=== PATIENT | male | born 1955 | race Caucasian/White ===

== ENCOUNTER 2018-12-01 10:59 | Inpatient (IN) ==
--- NOTE | 2018-12-01 13:12 | Diag Imaging Result Doc PS360 ---
EXAM: CT HEAD W/O CONTRAST INDICATION: syncope / LOC TECHNIQUE: This exam was performed using automated exposure control, adjustment of mA or kV according to patient size, and/or use of iterative reconstruction technique. COMPARISON: None. FINDINGS: There is excessive motion artifact involving several slices at the level of the basal ganglia, which somewhat limits the diagnostic quality of this study. However, there is no definite acute infarct given the limited sensitivity of CT versus MRI. There is no discrete intracranial mass, mass effect, or intracranial hemorrhage. The surrounding soft tissues and bony structures are essentially unremarkable. IMPRESSION: Somewhat limited due to excessive motion artifact. No definite acute pathology as imaged. Electronically signed by Valentino Hernandez 12/01/2018 1:09 PM
[2018-12-01 13:49] LABS: URINE SOURCE CATH
[2018-12-01 13:56] LABS: BASO# 0.02 X1000 (0.0-0.2); BASO% 0.1 % (0.0-0.8); EOS# 0.03 X1000 (0.0-0.7); EOS% 0.2 % (0.0-10.0); HEMOGLOBIN 14.9 g/dL (14.0-18.0); IMM GRAN# 0.03 X1000 (0.0-0.04); IMM GRAN% 0.2 % (0.0-0.5); LYMPH# 1.13 X1000 (1.2-3.4); LYMPH% 6.8 % (20.5-51.1); MCH 30.8 PG (27-31); MCHC 33.1 g/dL (33-37); MCV 93.2 FL (81-99); MONO# 0.82 X1000 (0.11-0.59); MPV 9.2 FL (7.4-10.4); NEUT% 87.7 % (42.2-75.2); PLT 369 X1000 (130-400); RBC 4.83 XMIL (4.7-6.1); RDW 12.4 % (11.5-14.5); WBC 16.53 X1000 (4.8-10.8)
[2018-12-01 14:00] LABS: BILIRUBIN URINE NEGATIVE (NEGATIVE); BLOOD URINE NEGATIVE (NEGATIVE); COLOR YELLOW; GLUCOSE URINE NEGATIVE (NEGATIVE); KETONE URINE NEGATIVE (NEGATIVE); LEUKOCYTES URINE NEGATIVE (NEGATIVE); NITRITE URINE NEGATIVE (NEGATIVE); PH URINE 6.5; PROTEIN URINE 50 mg/dL (NEGATIVE); SP GRAVITY URINE 1.013; TURBIDITY URINE HAZY (CLEAR); UR EPITHELIAL CELLS >10 /HPF (<10); URINE BACTERIA NEGATIVE /HPF; URINE RBC <10 /HPF (<10); URINE WBC <10 /HPF (<10); UROBILINOGEN URINE NORMAL (NORMAL)
[2018-12-01 14:11] LABS: AGAP 14; ALB/GLOB RATIO 1.5; ALBUMIN 4.3 g/dL (3.5-5.0); ALKALINE PHOSPHATASE 97 U/L (32-122); BUN 8 mg/dL (8-22); CALCIUM 9.4 mg/dL (8.8-10.2); CHLORIDE 103 mmol/L (98-107); COSMO 278; CREATININE 0.6 mg/dL (0.7-1.2); ESTIMATED GFR > 60; GLUCOSE 106 mg/dL (70-104); GOT 18 U/L (10-34); GPT 12 U/L (10-44); POTASSIUM 4.3 mmol/L (3.5-5.1); SODIUM 140 mmol/L (136-145); TCO2 23 mmol/L (25-35); TOTAL BILIRUBIN 0.42 mg/dL (0.20-1.00); TOTAL PROTEIN 7.2 g/dL (6.3-8.3)
[2018-12-01] MEDS ORDERED: ROCEPHIN 1 GM in NS 50 ML IV ONE (14:16)
[2018-12-01] MEDS ORDERED: ZITHROMAX 500 MG/NS 500 MG/250 ML IVPB IV ONE (14:16)
--- NOTE | 2018-12-01 14:40 | Diag Imaging Result Doc PS360 ---
CHEST-2 VIEWS - 12/01/2018 INDICATION: syncope COMPARISON: 07/14/2018 FINDINGS: Lung volumes are low. No focal infiltrates, pneumothorax, or pleural effusion. Heart size is normal. IMPRESSION: Low lung volumes but no acute disease. Electronically signed by Tae Bajwa 12/01/2018 2:38 PM
[2018-12-01] MEDS ORDERED: TYLENOL PO PRN (14:51)
[2018-12-01] MEDS ORDERED: ZOFRAN IV PRN (14:51)
[2018-12-01] MEDS ORDERED: NS 1,000 ML IV SCH (15:00)
[2018-12-01] MEDS: NS 1,000 ML IV SCH (16:10)
[2018-12-01] MEDS: ATIVAN IV PRN (17:00)
--- NOTE | 2018-12-01 17:36 | PROVIDER DOCUMENTATION ---
This chart was entered by Joanne Angela Scribe, acting as scribe for Arnulfo Landry MD. HPI-Syncope/Dizziness - General Chief Complaint: Vomiting Stated Complaint: syncope Time Seen by Provider: 12/01/18 11:34 Source: patient Allergies/Adverse Reactions: Patient Allergies Allergy/AdvReac Type Severity Reaction Status Date / Time No Known Allergies Allergy Verified 12/01/18 11:49 Home Medications: Home Medication List Medication Instructions Recorded Confirmed Last Taken Type Aspirin [Aspirin EC] 81 mg PO DAILY 12/01/18 12/01/18 Unknown History Cholecalciferol (Vitamin D3) 2,000 unit PO DAILY 12/01/18 12/01/18 Unknown History [Vitamin D3] Docusate Sodium 100 mg PO DAILY 12/01/18 12/01/18 Unknown History Icosapent Ethyl [Vascepa] 100 mg PO BID 12/01/18 12/01/18 Unknown History Omeprazole [Prilosec] 20 mg PO DAILY@0700 12/01/18 12/01/18 Unknown History - History of Present Illness-Syncope/Dizzy Nature of Presenting Problem: Patient is a 62 year old male who presents to the ED via EMS for syncope. 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 insulation worker furnace installer states while out today at an activity, they were riding back to the [facility], and he passed out in the car. According to nurses present with him, the patient had multiple episodes of passing out, and not being responsive. insulation worker furnace installer states patient had one episode of vomiting. They state he is not actin like himself. He has a history of mental retardation since . Prior Episodes: reports: multiple episodes today Onset/Duration: reports: this morning Timing: reports: still present Position/Activity at time of episode: reports: sitting Symptoms prior to episode: reports: unknown Context: reports: lost consciousness Loss of Consciousness: brief (seconds) Location of injury. (If syncope resulted in an injury.): reports: none Current Symptoms: reports: vomiting Recently Seen Here or By Another Healthcare Provider: No Review of Systems - Adult - REVIEW OF SYSTEMS - ADULT Constitutional: reports: no symptoms reported Eyes: reports: no symptoms reported Ears, Nose, Mouth & Throat: reports: no symptoms reported Cardiovascular: reports: no symptoms reported Respiratory: reports: no symptoms reported Gastrointestinal: reports: vomiting. denies: abdominal pain, diarrhea, nausea Genitourinary: reports: no symptoms reported Musculoskeletal: reports: no symptoms reported Integumentary: reports: no symptoms reported Neurological: reports: syncope. denies: dizziness/vertigo, headache/migraines, numbness, seizure, tremors Psychiatric: reports: no symptoms reported Endocrine: reports: no symptoms reported Hematologic/Lymphatic: reports: no symptoms reported Allergic/Immunologic: reports: no symptoms reported All Other Systems: Reviewed and Negative Past History - Adult - PAST MEDICAL HISTORY-ADULT Review of Records: reports: Nursing Assessment Review, Medications Reviewed, Social history reviewed & non-contributory. Major Childhood Illnesses: reports: denies history Cardiovascular: reports: hyperlipidemia Respiratory: reports: denies history Gastrointestinal: reports: GERD Obstetrical/Gynecological: reports: denies history Genitourinary: reports: denies history Musculoskeletal: reports: denies history Neurological: reports: denies history Psychiatric: reports: other (mental retardation since ) Endocrine/Immune: reports: denies history Other Conditions: reports: denies history - PRIOR SURGERIES/PROCEDURES Surgical/Procedure History: reports: reviewed, not pertinent - IMMUNIZATION STATUS Childhood Immunizations: See Nurse Assessment Flu Vaccine: See Nurse Assessment - FAMILY HISTORY Family History: reviewed, not pertinent - SOCIAL HISTORY Smoking: denies Substance Use: denies Alcohol Use Frequency: never Living Situation: family Physical Exam-General - PHYSICAL EXAM-ADULT Initial Vital Signs Reviewed: Yes - CONSTITUTIONAL General Appearance: alert, no apparent distress - EYES Eyes: PERRL/EOMI - HEAD, EARS, NOSE, MOUTH & THROAT HENMT: normal ENT inspection - NECK Neck: normal inspection - RESPIRATORY Respiratory: chest non-tender, lungs clear, normal breath sounds - CARDIOVASCULAR Cardiovascular: normal peripheral pulses, regular rate, rhythm - GASTROINTESTINAL (ABDOMEN) Abdominal Exam: normal bowel sounds, non tender, soft - MUSCULOSKELETAL Back Exam: normal inspection Extremity: non-tender, normal inspection - SKIN Integumentary: normal color, normal turgor, warm/dry - NEUROLOGIC Neurologic: grossly normal - PSYCHIATRIC Psych/Mental Status: normal mood/affect, oriented x 3 Progress - PLAN OF CARE/RESULTS Progress/Plan/Lab Results: Vital Signs - 8 hr 12/01/18 11:25 12/01/18 12:00 12/01/18 13:30 Temperature 97.8 F Pulse Rate 70 87 88 Respiratory Rate 16 16 23 Blood Pressure 101/71 113/59 97/65 O2 Sat by Pulse Oximetry 97 99 98 12/01/18 14:30 Temperature Pulse Rate 88 Respiratory Rate 16 Blood Pressure 98/66 O2 Sat by Pulse Oximetry 99 Laboratory Results - last 24 hr 12/01/18 12/01/18 12/01/18 13:20 13:20 13:20 WBC 16.53 H RBC 4.83 Hgb 14.9 Hct 45.0 MCV 93.2 MCH 30.8 MCHC 33.1 RDW Std Deviation 12.4 Plt Count 369 MPV 9.2 Immature Gran % (Auto) 0.2 Neut % (Auto) 87.7 H Lymph % (Auto) 6.8 L [place] % (Auto) 5.0 Eos % (Auto) 0.2 Baso % (Auto) 0.1 Immature Gran # (Auto) 0.03 Neut # (Auto) 14.50 H Lymph # (Auto) 1.13 L [place] # (Auto) 0.82 H Eos # (Auto) 0.03 Baso # (Auto) 0.02 Sodium 140 Potassium 4.3 Chloride 103 Carbon Dioxide 23 L Anion Gap 14 BUN 8 Creatinine 0.6 L Estimated GFR/1.73 m2 > 60 BUN/Creatinine Ratio 13 Glucose 106 H Calculated Osmolality 278 Calcium 9.4 Total Bilirubin 0.42 AST 18 ALT 12 Alkaline Phosphatase 97 Troponin T Kot-M-Agmohhouhfo Pept 57 Total Protein 7.2 Albumin 4.3 Globulin 2.9 Albumin/Globulin Ratio 1.5 Urine Source Urine Color Urine Turbidity Urine pH Ur Specific [place] Urine Protein Ur Glucose (Stick) Ur Ketones (Stick) Urine Blood Urine Nitrite Urine Bilirubin Urobilinogen Dipstick Urine Leukocytes Urine WBC (Auto) Urine RBC (Auto) U Epithel Cells (Auto) Urine Bacteria (Auto) 12/01/18 12/01/18 13:20 13:30 WBC RBC Hgb Hct MCV MCH MCHC RDW Std Deviation Plt Count MPV Immature Gran % (Auto) Neut % (Auto) Lymph % (Auto) [place] % (Auto) Eos % (Auto) Baso % (Auto) Immature Gran # (Auto) Neut # (Auto) Lymph # (Auto) [place] # (Auto) Eos # (Auto) Baso # (Auto) Sodium Potassium Chloride Carbon Dioxide Anion Gap BUN Creatinine Estimated GFR/1.73 m2 BUN/Creatinine Ratio Glucose Calculated Osmolality Calcium Total Bilirubin AST ALT Alkaline Phosphatase Troponin T < 0.010 Cir-N-Psyxbjvskfx Pept Total Protein Albumin Globulin Albumin/Globulin Ratio Urine Source CATH Urine Color YELLOW Urine Turbidity HAZY Urine pH 6.5 Ur Specific [place] 1.013 Urine Protein 50 A Ur Glucose (Stick) NEGATIVE Ur Ketones (Stick) NEGATIVE Urine Blood NEGATIVE Urine Nitrite NEGATIVE Urine Bilirubin NEGATIVE Urobilinogen Dipstick NORMAL Urine Leukocytes NEGATIVE Urine WBC (Auto) <10 Urine RBC (Auto) <10 U Epithel Cells (Auto) >10 A Urine Bacteria (Auto) NEGATIVE Orders Category Date Time Status Admit - [facility] Routine AdmDCTranf 12/01/18 14:51 Active Orthostatic Vital Signs NOW Care 12/01/18 14:42 Active Regular Diet Diet 12/01/18 14:51 Active CHEST-2 VIEWS [RAD] Stat Exams 12/01/18 12:[address] HEAD W/O CONTRAST [CT] Stat Exams 12/01/18 12:38 Completed BLOOD CULTURE [BLDCUL] Stat Lab 12/01/18 16:15 Results CBC WITH ELECTRONIC DIFF [HEME] Stat Lab 12/01/18 13:20 Completed COMPREHENSIVE METABOLIC PANEL [CHEM] Stat Lab 12/01/18 13:20 Completed LACTATE, PLASMA [CHEM] Stat Lab 12/01/18 16:00 Completed PRO B-NATRIURETIC PEPTIDE Stat Lab 12/01/18 13:20 Completed TROPONIN T Stat Lab 12/01/18 13:20 Completed UA [URINALYSIS W/POSS RFLX CULT] [URINALYSIS] Stat Lab 12/01/18 13:30 Completed 0.9% Sodium Chloride Inj [Ns] 1,000 ml Med 12/01/18 15:00 Discontinued IV 75 mls/hr Acetaminophen [Tylenol] Med 12/01/18 14:51 Active 650 mg PO Q6H PRN PRN Azithromycin 500 mg/Ns [Zithromax 500 mg/Ns] Med 12/01/18 14:16 Discontinued 500 mg in 250 ml IV NOW CefTRIAXONE [Rocephin] 1 gm Med 12/01/18 14:16 Discontinued 0.9% Sodium Chloride Inj [Ns] 50 ml IV NOW Omeprazole [Prilosec] Med 12/01/18 21:00 Active 40 mg PO BID Ondansetron [Zofran] Med 12/01/18 14:51 Active 4 mg IV Q4H PRN PRN Carotid Ultrasound Routine Ther 12/01/18 14:45 Completed EKG [EKG] Stat Ther 12/01/18 12:39 Ordered Echo Spec/Color Dop W/O Contra Routine Ther 12/01/18 14:45 Ordered Transfer/Admit Order [TRANSFER] Routine Transfer 12/01/18 14:48 Ordered A/P: Pt cxr shows pneumonia / infiltrtae in Right middle lobe, has elevated WBC count, afebrile, UA clear. Will admit for pneumonia and IV AB. and multiple syncopal episodes. Result Diagrams: 12/01/18 13:20 12/01/18 13:20 - REASSESSMENT Reassessment #1 Time Reassessed: 13:33 (pt being cathed at this time, is more verbal. ) Status: unchanged - XRAY 1 XRAY Study: Chest Impression: Abnormal ([facility] [address], [address], [place] [address] Department of Imaging [facility]: [facility]MR#: [id number] : 8ADM Status: REG ERAt#: [id number] Age/Sex: 62/MRoom/Bed: Loc: ED Ordering Physician: Arnulfo Landry MD Family Physician: Tayo River MD Reason for Procedure: syncope Signed CHEST-2 VIEWS - 12/01/2018 INDICATION: syncope COMPARISON: 07/14/2018 FINDINGS: Lung volumes are low. No focal infiltrates, pneumothorax, or pleural effusion. Heart size is normal. IMPRESSION: Low lung volumes but no acute disease. Electronically signed by Tae Bajwa 2018 2:38 PM 12/01/18 1438 Interpreting Physician: Tae Bajwa MD Dictated Date/Time: 12/01/18 1437 cc: Arnulfo Landry MD; Tayo River MD) - CT/MRI 1 CT Study: Head Impression: See EMR Report ( EXAM: CT HEAD W/O CONTRAST INDICATION: syncope / LOC TECHNIQUE: This exam was performed using automated exposure control, adjustment of mA or kV according to patient size, and/or use of iterative reconstruction technique. COMPARISON: None. FINDINGS: There is excessive motion artifact involving several slices at the level of the basal ganglia, which somewhat limits the diagnostic quality of this study. However, there is no definite acute infarct given the limited sensitivity of CT versus MRI. There is no discrete intracranial mass, mass effect, or intracranial hemorrhage. The surrounding soft tissues and bony structures are essentially unremarkable. IMPRESSION: Somewhat limited due to excessive motion artifact. No definite acute pathology as imaged. Electronically signed by Valentino Hernandez 12/01/2018 1: 09 PM 12/01/18 1309 Interpreting Physician: Valentino Hernandez MD Dictated Date /Time: 12/01/18 1305 cc: Arnulfo Landry MD; Tayo River MD) Departure - Departure Date of Disposition Decision: 12/01/18 Time of Disposition Decision: 17:39 DIAGNOSIS: Syncope Disposition: ADMITTED INPATIENT 09 Certified Medical Emergency: Emergent Condition: Stable - Critical Care Note This patient required my direct & personal management of CC.: No Attestation - Physician/ MARCIA Attestation Patient care was provided by Advanced Practice Provider:: No The physician spent face to face time with patient:: Yes Advanced Practice Provider documentation review:: Supervising physician onsite and consulted in the evaluation and care of this patient. The physician did have a face to face encounter with the patient. This chart was documented by the indicated scribe, (Joanne Angela Scribe) and accurately reflects the services I performed and decisions made by me, Arnulfo Landry MD, as attested by the provider's signature.
--- NOTE | 2018-12-01 18:07 | HISTORY AND PHYSICAL ---
CHIEF COMPLAINT: Syncope/dizziness. HISTORY OF PRESENT ILLNESS: This is a 62-year-old male, who is a resident of a [facility]. He was brought to the emergency department because of syncope. Patient is nonverbal, so information that I got was from [facility] workers who are at bedside. The patient apparently is able to ambulate while he was out today, and they were riding back to the [facility]. He apparently felt weak, and he apparently passed out in the car for a few seconds. Apparently, also he had 1 episode of vomiting just after he passed out. He was not acting himself since today. He has history of mental retardation since . Now upon my examination [facility] workers reported that patient is back to his baseline. PAST MEDICAL HISTORY: 1. Hypercholesterolemia. 2. Gastroesophageal reflux disease. 3. Esophageal stricture that requires dilatation. Dr. Lovell performed that procedure every 5 years. PAST SURGICAL HISTORY: None. ALLERGIES: No known drug allergies. SOCIAL HISTORY: Patient lives in a [facility]. He does not drink any alcohol, smoke tobacco, or using illicit drugs. REVIEW OF SYSTEMS: Not possible to obtain because of the clinical status of the patient. PHYSICAL EXAMINATION: VITAL SIGNS: Temperature 97.7 degrees, heart rate 88, respiratory rate 22, blood pressure 113/59, O2 saturation 99% on room air. GENERAL: This is a 62-year-old male with history of mental retardation since lying in bed, in no acute distress. HEENT: Head is normocephalic, atraumatic. NECK: No JVD noted. No carotid bruits. No lymphadenopathy. The patient does not allow me to flex the neck. CARDIOVASCULAR: S1 and S2 heard. No murmurs, gallops, or rubs. Regular rate and rhythm. RESPIRATORY: Minimal coarse breath sounds in both pulmonary bases. Patient is not using any accessory muscles or having work of breathing. ABDOMEN: Soft, nontender to palpation. Bowel sounds present. No organomegaly. EXTREMITIES: No clubbing or cyanosis noted. Upper extremities are flexed externally. NEUROLOGIC: Patient is nonverbal and does not follow commands. Moves 4 extremities spontaneously. LABORATORY DATA: White cell count 16.53, hemoglobin 14.4, hematocrit 45, platelets 369,000. BMP is okay. ASSESSMENT AND PLAN: 1. Syncopal episode/aspiration pneumonia. It is not completely clear if this patient has aspirated or not. He had an episode of vomiting just after he passed out. He was not feeling good according to them since this morning. X-ray did not show clear pneumonia although the ER reported that they are able to see a right lower lobe and right upper lobe pneumonia. In any case what I prefer to do is to have a CT of the chest without contrast done and see what it shows. If there is no pneumonia, we will monitor this patient closely until tomorrow and we can discharge him. For now while we wait for the results of that exam, considering his leukocytosis I prefer to start Zosyn on him. 2. History of mental retardation since . Aware. We will monitor this patient closely. 3. Hypercholesterolemia. We will continue home medications. 4. Gastroesophageal reflux disease. We will provide Protonix 40 mg IV q.24 hours. 5. Further recommendations to follow according to the clinical situation of the patient. cc: Jefe Chavis MD
--- NOTE | 2018-12-01 18:49 | Diag Imaging Result Doc PS360 ---
EXAM: CT THORAX W/O CONTRAST INDICATION: aspiration pneumonia suspected TECHNIQUE: This exam was performed using automated exposure control, adjustment of mA or kV according to patient size, and/or use of iterative reconstruction technique. COMPARISON: None. FINDINGS: There is mild biapical scarring. There is mild subsegmental atelectasis at the lung bases. The lungs are grossly clear, otherwise. There is no pleural fluid collection and no pneumothorax. There is no evidence of significant mediastinal or hilar lymphadenopathy. There are a few calcified mediastinal lymph nodes suggesting prior granulomatous disease. Limited views of the upper abdomen are essentially unremarkable. IMPRESSION: Minimal bibasilar subsegmental atelectasis and biapical scarring. Otherwise, no definite acute pathology. Electronically signed by Valentino Hernandez 12/01/2018 6:47 PM
[2018-12-01] MEDS: PRILOSEC PO SCH (21:00)
[2018-12-02] MEDS: NS 1,000 ML IV SCH ×2 (00:58→08:57)
[2018-12-02] MEDS: ICOSAPENT ETHYL 1000 MG PO SCH ×2 (01:09→09:13)
[2018-12-02] MEDS: ATIVAN IV PRN ×3 (01:12→15:40)
[2018-12-02 07:52] LABS: BASO# 0.01 X1000 (0.0-0.2); BASO% 0.1 % (0.0-0.8); EOS# 0.19 X1000 (0.0-0.7); EOS% 2.5 % (0.0-10.0); HEMATOCRIT 36.2 % (42.0-52.0); HEMOGLOBIN 11.9 g/dL (14.0-18.0); LYMPH# 1.71 X1000 (1.2-3.4); LYMPH% 22.2 % (20.5-51.1); MCH 30.8 PG (27-31); MCHC 32.9 g/dL (33-37); MCV 93.8 FL (81-99); MONO# 0.84 X1000 (0.11-0.59); MONO% 10.9 % (1.7-9.3); MPV 9.1 FL (7.4-10.4); NEUT# 4.95 X1000 (1.4-6.5); NEUT% 64.3 % (42.2-75.2); PLT 317 X1000 (130-400); RBC 3.86 XMIL (4.7-6.1); RDW 12.2 % (11.5-14.5)
[2018-12-02 07:53] LABS: INR 1.11; PROTIME 15.2 Seconds (11.0-16.0)
[2018-12-02 07:54] LABS: PTT 33.1 Seconds (22.3-41.8)
[2018-12-02 08:04] LABS: AGAP 8; ALB/GLOB RATIO 1.6; ALBUMIN 3.4 g/dL (3.5-5.0); ALKALINE PHOSPHATASE 79 U/L (32-122); BUN 4 mg/dL (8-22); CALCIUM 8.1 mg/dL (8.8-10.2); CHLORIDE 105 mmol/L (98-107); COSMO 277; CREATININE 0.6 mg/dL (0.7-1.2); ESTIMATED GFR > 60; GLUCOSE 104 mg/dL (70-104); GOT 14 U/L (10-34); GPT 11 U/L (10-44); MAGNESIUM 1.8 mg/dL (1.5-2.7); SODIUM 140 mmol/L (136-145); TCO2 27 mmol/L (25-35); TOTAL PROTEIN 5.5 g/dL (6.3-8.3)
[2018-12-02] MEDS: PRILOSEC PO SCH (08:57)
[2018-12-02] MEDS ORDERED: ASPIRIN EC PO SCH (09:00)
[2018-12-02] MEDS ORDERED: VITAMIN D PO SCH (09:00)
[2018-12-02] MEDS ORDERED: COLACE PO SCH (09:00)
[2018-12-02] MEDS ORDERED: CLINDAMYCIN 600 MG/NS 600 MG/50 ML IVPB IV SCH (14:15)
[2018-12-02] MEDS ORDERED: CLINDAMYCIN 600 MG/D5W 600 MG/50 ML IVPB IV SCH (14:30)
--- NOTE | 2018-12-02 15:17 | PROGRESS NOTE ---
DATE: 12/02/2018 SUBJECTIVE: Patient is nonverbal according to caregiver who is at bedside. Patient is almost back to his baseline, although he looks a little bit more tired today. No complaints or issues noted. OBJECTIVE: Vital Signs: Temperature 97.5 degrees, heart rate 77, respiratory rate 18, blood pressure 100/48, O2 saturation 100% on room air. General Examination: This is a chronically ill looking. 62-year-old, male with history of mental retardation, lying in bed in no acute distress. HEENT: Head is normocephalic, atraumatic. Mucous membranes dry. Neck: No JVD noted. No carotid bruits. Cardiovascular exam: S1, S2 heard. No murmurs, gallops, or rubs. Regular rate and rhythm. Respiratory exam: Minimal coarse breath sounds still noted in both pulmonary bases, but patient is not using any accessory muscles or having work of breathing. Abdomen: Soft, nontender to palpation. Bowel sounds present. No organomegaly. Extremities: No clubbing, cyanosis, or edema. Peripheral pulses present in both legs. Neurological exam: Patient is nonverbal. Does not follow commands. Moves 4 extremities spontaneously. LABORATORY DATA: White cell count is normal at 7.7, hemoglobin 11.9, hematocrit 36.2, platelets 317, normal BMP. ASSESSMENT: 1. Syncopal episode/aspiration pneumonia. The CT scan of the chest did not show any aspiration pneumonia, but considering history of vomiting and altered mental status with some transient difficulty in breathing makes me think that he truly had an aspiration pneumonia. So, in that regard, we will continue with Levaquin and will add clindamycin to his current treatment. White cell count is getting better. His oxygen needs are getting better. So, at this point, we will continue with same medication. 2. History of mental retardation since . We will continue with home medications. 3. Hypercholesteremia. The patient is on statin. We will continue with the same management. 4. Gastroesophageal reflux disease. We will continue with Protonix 40 mg intravenous every 12 hours. 5. Disposition: At this point, I am planning to continue with antibiotics. Whenever we think and also caregivers think this patient is back to his baseline, we will discharge this patient with oral antibiotics. cc: Jefe Chavis MD
[2018-12-02 15:31] LABS: URINE SOURCE CLEAN CATCH
[2018-12-02 15:42] LABS: BILIRUBIN URINE NEGATIVE (NEGATIVE); BLOOD URINE NEGATIVE (NEGATIVE); COLOR STRAW; GLUCOSE URINE NEGATIVE (NEGATIVE); KETONE URINE NEGATIVE (NEGATIVE); LEUKOCYTES URINE NEGATIVE (NEGATIVE); NITRITE URINE NEGATIVE (NEGATIVE); PROTEIN URINE NEGATIVE (NEGATIVE); TURBIDITY URINE CLEAR (CLEAR); UROBILINOGEN URINE NORMAL (NORMAL)
[2018-12-02 15:44] LABS: UR EPITHELIAL CELLS <10 /HPF (<10); URINE BACTERIA NEGATIVE /HPF; URINE RBC <10 /HPF (<10); URINE WBC <10 /HPF (<10)
--- NOTE | 2018-12-02 15:48 | ECHO REPORT ---
ORDER DATE: 12/01/2018 MEASUREMENTS: Left ventricular end-diastolic diameter 4.1, systolic murmur 2.5, septal thickness 1.2, posterior wall thickness 1.1, aortic root 3.9, left atrium 2.7. SUMMARY: 1. Fair quality study. 2. Aortic valve was without evidence of structural abnormality and opens adequately on 2- dimensional images. Peak gradient across aortic valve is less than 10 mmHg. Mitral, tricuspid and pulmonic valves are without evidence of structural abnormality. There is trace mitral regurgitation and trace tricuspid regurgitation. The aortic root is normal in size. There is trace mitral regurgitation and trace tricuspid regurgitation. The aortic root is borderline enlarged. 3. Normal left ventricular chamber size with borderline concentric left hypertrophy is suggested. Estimated left ejection fraction appears to be at least 70%. No regional wall motion abnormalities are evident. Doppler suggests grade 1 left ventricular diastolic dysfunction. Left atrium, right atrium, right ventricle are normal in size with grossly preserved right ventricular systolic function. 4. No pericardial effusion. 5. Appearance of inferior vena cava suggests normal central venous pressure. cc: MD Jayna Garcia CRNP
[2018-12-02 17:58] VITALS: BP 116/70
--- NOTE | 2018-12-03 16:00 | DISCHARGE SUMMARY ---
ADMISSION DATE: 12/01/2018 DISCHARGE DATE: 12/02/2018 DISCHARGE DIAGNOSES: 1. Syncopal episode 2. Aspiration pneumonia. 3. History of mental retardation since . 4. Hypercholesterolemia. 5. Gastroesophageal reflux disease.. PROCEDURES: 1. Head CT done on admission showed somewhat limited due to the excessive motion artifact, but not definite acute pathology noted. 2. Echocardiogram Doppler showed ejection fraction of 70% with no grossly valvular abnormalities noted and no pericardial effusion. Normal central venous pressure as well. 3. Chest CT showed minimal bibasilar subsegmental atelectasis and biapical scaring, but no definite acute pathology. HOSPITAL COURSE: In brief, this is a 62-year-old male, who is a resident of a half[facility], who was brought to the emergency department because of syncope. As per half-way caregiver, apparently he was feeling more weak that day. He collapsed, but he did not pass out completely and he vomited. He was also collapsed over the caregiver, so that is why they brought him to the emergency department. There was a leukocytosis noted in the labs, and the x-ray did not show any acute pathology. For suspicion of possible aspiration pneumonia, we decided to admit this patient to the hospital. He received antibiotics and white cell count next day was completely normal. He was more stable, although 1 of the caregivers said in the morning to me that the patient was not completely back to his baseline. He said that he was much better. Finally, half-way staff requested if this patient could be discharged and considering that the aspiration pneumonia was the reason why he was admitted, I think it is safe to discharge this patient back there. No other issues noted as per nursing staff overnight so he is going to be discharged in stable condition. DISCHARGE PHYSICAL EXAMINATION: Vital Signs: Temperature 97.5 degrees, heart rate 77, respiratory rate 18, blood pressure 100/48, O2 saturation 100% on room air. General examination: This is a 62-year-old male, lying in bed in no acute distress with a history of mental retardation since . Cardiovascular exam: S1, S2 heard. No murmurs, gallops, or rubs. Regular rate and rhythm. Respiratory exam: Minimal coarse breath sounds in both pulmonary bases. Patient is not using any accessory muscles or having work of breathing. Abdomen: Soft, nontender to palpation. Bowel sounds present. No organomegaly. Extremities: No clubbing, cyanosis, or edema. Peripheral pulses present in both legs. Neurological exam: The patient is nonverbal, does not follow commands, but that is his baseline according to caregivers. DISCHARGE DISPOSITION: Home to self-care. LIST OF MEDICATIONS: 1. Augmentin 875 mg 1 tablet p.o. b.i.d. for 7 days. 2. Omeprazole 20 mg 1 tablet p.o. daily. 3. Aspirin 81 mg 1 tablet p.o. daily. 4. Cholecalciferol 2000 units p.o. daily. 5. Vascepa 100 mg 1 tablet p.o. b.i.d. 6. Docusate 100 mg p.o. daily as needed for constipation. TIME DISCHARGING THIS PATIENT: 33 minutes. FOLLOWUP: Follow up with primary care physician in 1 to 2 weeks. cc: Jefe Chavis MD MTDD
--- NOTE | 2018-12-07 15:10 | Carotid Study ---
DATE: 12/01/2018 PROCEDURE: Carotid duplex study. REFERRING PHYSICIAN: Dr. Landry. INTERPRETING PHYSICIAN: Dr. Jaxon Cook. TECH: foodpanda / [email or web address]. INDICATIONS: Syncope. OBSERVED DATA RIGHT LEFT Brachial Blood Pressure Carotid Pulse Bruits: Carotid/Sub DIAGRAM OF ULTRASOUND IMAGING R L RIGHT INT EXT INT EXT LEFT Bentley (cm/s) Bentley (cm/s) Subclavian 145/9 Subclavian 117/0 CCA Proximal 91/7 CCA Proximal 102/9 CCA Distal 101/5 CCA Distal 101/11 Bulb 50/7 Bulb 72/12 ICA Proximal 55/12 ICA Proximal 61/22 ICA Mid 75/27 ICA Mid 67/23 ICA Distal 46/11 ICA Distal 41/11 ECA 74/0 ECA 75/6 Vertebral 46/12 Vertebral 38/7 ICA/CCA Ratio 0.7 ICA/CCA Ratio 0.7 % Stenosis 0-39% % Stenosis 0-39% FINDINGS: There are no significant plaque lesions or flow-limiting stenoses in either carotid system. PHYSICIAN INTERPRETATION: Normal carotid imaging study. cc: MD Jayna Cooney CRNP
== END 2018-12-02 18:35 | disposition home or self-care (01) | DRG 179 ==
LOC: SUPCPDRO → ED 10:59 → EDIPHOLD 15:17 → 3N 21:07
PROVIDERS: ATTEND Internal Medicine
CPT/HCPCS: 70450; 71020; 71046; 71250; 80053; 81001; 82550; 83605; 83735; 83880; 84443; 84484; 85025; 85610; 85730; 87040; 93005; 93306; 93880; 96374; 96375; 99285; A9270; J0456; J0696; J2060; J7030